=== PATIENT | female | born 2000 | race Caucasian/White ===

== ENCOUNTER 2020-09-04 09:59 | Emergency (ER) | payer OTHER ==
[~2020-09-04] VITALS: Ht 162.6 cm; Wt 47.9 kg
--- NOTE | 2020-09-04 10:30 | NUR ---
PT STATES SHE HAD A + PREGNACY TEST AT HOME 08/23. IN OFFICE 08/31. CRAMPING IN LOW ABD LAST NIGHT. NO DISTRESS. VSS
[2020-09-04 11:13] LABS: BASOPHILS % (AUTO) 0 % (0-1); EOSINOPHILS % (AUTO) 1 % (1-7); LYMPHOCYTES % (AUTO) 21 % (22-44); MD NO; MEAN CORPUSCULAR HEMOGLOBIN 30.3 pg (27.0-34.8); MEAN CORPUSCULAR HGB CONC 33.9 g/dL (32.4-35.8); MEAN PLATELET VOLUME 8.7 fL (7.4-10.4); MONOCYTES % (AUTO) 10 % (2-9); NEUTROPHILS % (AUTO) 68 % (42-75); PLATELET COUNT 257 x10^3/uL (130-400); RED BLOOD COUNT 5.12 x10^6/uL (3.82-5.3); RED CELL DISTRIBUTION WIDTH 14.1 % (9.6-15.2)
[2020-09-04 11:22] LABS: ALBUMIN 3.8 g/dL (3.4-5.0); ANION GAP 4 mmol/L (5-15); CALCIUM 8.8 mg/dL (8.5-10.1); CHLORIDE 106 mmol/L (98-107); CREATININE 0.71 mg/dL (0.55-1.02)
--- NOTE | 2020-09-04 11:27 | NUR ---
PT IN BED NO DISTRESS
--- NOTE | 2020-09-04 11:31 | NUR ---
DOWN TO US
[2020-09-04 11:34] LABS: MICROSCOPIC NOT IND
--- NOTE | 2020-09-04 12:27 | NUR ---
PT IN BED NO DISTRESS
[2020-09-04 13:10] VITALS: BP 124/74
--- NOTE | 2020-09-04 13:12 | NUR ---
PT WALKED OUT SELF, NO DISTRESS, VSS, DISCUSSED IF S&S WORSEN COME BACK TO ER
== END 2020-09-04 13:18 | disposition home or self-care (01) ==
LOC: ED 13:09
DX: O26.891 Other specified pregnancy related conditions, first trimester (principal); R10.2 Pelvic and perineal pain; Z3A.01 Less than 8 weeks gestation of pregnancy
CPT/HCPCS: 36415; 76801; 80048; 81003; 82040; 84702; 85025; 99284